=== PATIENT | male | born 1990 | race Caucasian/White ===

== ENCOUNTER 2017-01-08 10:35 | Emergency (ER) | payer SELFPAY ==
[~2017-01-08] VITALS: Ht 188 cm; Wt 88.5 kg
[~2017-01-08 10:35] MED LIST: ASPI325T2 PO; LAMO100T2 PO; LEVO88TA2 PO; LORA-258 PO; RIVA10TA
[2017-01-08] MEDS ORDERED: HYDROMORPHONE INJ 2 MG/ML DISP.SYRIN IV ONE (11:00)
[2017-01-08] MEDS ORDERED: ONDANSETRON HCL/PF 4 MG/2 ML VIAL IVP ONE (11:00)
--- NOTE | 2017-01-08 11:00 | NUR ---
ASSUME PT CARE. RESTING IN BED. HERE FOR MIDSTERNAL CHEST PAIN THAT STARTED 2 HOURS PRIOR TO ARRIVAL. DENIES SOB. PT STATES HX OF BLOOD CLOTS. ON MONITOR W/ STABLE VITALS. SEEN BY LAURIE. WILL CONT TO MONITOR.
[2017-01-08] MEDS ORDERED: ONDANSETRON HCL/PF 4 MG/2 ML VIAL ONE (11:08)
[2017-01-08] MEDS ORDERED: HYDROMORPHONE 1 MG/1 ML DISP.SYRIN ONE ×2 (11:08→12:03)
[2017-01-08 11:10] LABS: BASOPHILS % (AUTO) 0.6 % (0.0-2.0); EOSINOPHILS # (AUTO) 0.1 /CMM (0.0-0.7); EOSINOPHILS % (AUTO) 1.6 % (0.0-6.0); HEMATOCRIT 43 % (39-51); HEMOGLOBIN 14.9 g/dL (13.5-17.5); LYMPHOCYTES # (AUTO) 1.5 /CMM (0.8-4.8); MEAN CORPUSCULAR HEMOGLOBIN 29 PG (26.0-33.0); MEAN CORPUSCULAR HGB CONC 34 g/dl (31.0-36.0); MEAN CORPUSCULAR VOLUME 85 fL (80-96); MONOCYTES # (AUTO) 0.3 /CMM (0.1-1.30); MONOCYTES % (AUTO) 4.7 % (2.0-12.0); NEUTROPHILS % (AUTO) 68.1 % (43.0-81.0); PLATELET COUNT (AUTO) 164 /CMM (150-450); RDW COEFFICIENT OF VARIATION 11.2 (11.5-15.0); RED BLOOD CELL COUNT(AUTO) 5.09 MIL/uL (4.5-6.0); WHITE BLOOD COUNT (AUTO) 5.9 K/uL (4.3-11.0)
[2017-01-08 11:20] LABS: CALCIUM, SERUM 9.1 mg/dL (8.5-10.1); CARBON DIOXIDE 29 mmol/L (21-32); CHLORIDE 102 mmol/L (98-107); CREATININE 1.1 mg/dL (0.6-1.3); GLUCOSE 98 mg/dL (74-106); SODIUM SERUM 139 mmol/L (136-145); UREA NITROGEN, BLOOD 10 mg/dL (7-18)
[2017-01-08 11:24] LABS: INR 1.09 (0.87-1.13); PROTHROMBIN TIME 11.3 SECS (9.5-12.7)
[2017-01-08 11:29] LABS: TROPONIN I < 0.017 ng/mL (0.00-0.056)
[2017-01-08] MEDS ORDERED: HYDROMORPHONE 1 MG/1 ML DISP.SYRIN IV ONE (12:00)
--- NOTE | 2017-01-08 12:20 | NUR ---
PT TO RADIOLOGY FOR CT PULMONARY ANGIO VIA [facility].
[2017-01-08] MEDS ORDERED: IOHEXOL-350 100 ML VIAL IV ONE (12:24)
[2017-01-08] MEDS ORDERED: CT SWABBABLE VALVE TRANS SET 1 EA INFUS.SET MC ONE (12:24)
[2017-01-08] MEDS ORDERED: IV NS 0.9% 250 ML IV ONE (12:24)
--- NOTE | 2017-01-08 13:19 | NUR ---
Patient discharged to home in stable condition. Written and verbal after care instructions given. Patient verbalizes understanding of instruction.IV removed. Catheter intact and site benign. Pressure and 4x4 applied to site. No bleeding noted.
[2017-01-08 13:20] VITALS: BP 132/80
== END 2017-01-08 13:42 | disposition home or self-care (01) ==
LOC: ER 10:40
DX: R07.89 Other chest pain (principal); Z90.49 Acquired absence of other specified parts of digestive tract; F17.200 Nicotine dependence, unspecified, uncomplicated; Z88.0 Allergy status to penicillin; Z88.2 Allergy status to sulfonamides; Z88.8 Allergy status to other drugs, medicaments and biological substances; Z88.6 Allergy status to analgesic agent
CPT/HCPCS: 36415; 71275; 80048; 84484; 85025; 85730; 93005; 96374; 96375; 96376; 99285; A4606; J1170 ×2; J2405; J7050; Q9967; Z7610

== ENCOUNTER 2018-04-20 13:48 | Emergency (ER) | payer OTHER ==
[~2018-04-20] VITALS: Ht 182.9 cm; Wt 122.0 kg
[~2018-04-20 13:48] MED LIST changes: +ASPI-992 PO; -ASPI325T2 PO
--- NOTE | 2018-04-20 14:10 | NUR ---
PT BIBSELF C/O ABD PAIN WITH RECTAL BLEEDING AFTER GOING TO BR LAST NIGHT N, -V/D. PT ON MONITOR IN BED 4. WILL CONTINUE TO MONITOR.
[2018-04-20] MEDS ORDERED: ONDANSETRON HCL/PF 4 MG/2 ML VIAL ONE (14:12)
[2018-04-20] MEDS ORDERED: MORPHINE SULFATE INJ 4 MG/ML DISP.SYRIN ONE (14:13)
--- NOTE | 2018-04-20 14:20 | NUR ---
BLOOD COLLECTED AND SENT TO LAB
[2018-04-20] MEDS ORDERED: MORPHINE SULFATE INJ 2 MG/ML DISP.SYRIN IV ONE ×2 (14:30→16:00)
[2018-04-20] MEDS ORDERED: ONDANSETRON HCL/PF 4 MG/2 ML VIAL IVP ONE (14:30)
[2018-04-20] MEDS ORDERED: IV NS 0.9% 1,000 ML BAG IV ONE (14:30)
[2018-04-20 14:37] LABS: BASOPHILS % (AUTO) 0.6 % (0.0-2.0); EOSINOPHILS % (AUTO) 1.7 % (0.0-6.0); HEMATOCRIT 44 % (39-51); HEMOGLOBIN 15.5 g/dL (13.5-17.5); LYMPHOCYTES # (AUTO) 1.2 /CMM (0.8-4.8); LYMPHOCYTES % (AUTO) 23.6 % (20.0-44.0); MEAN CORPUSCULAR HGB CONC 35 g/dl (31.0-36.0); MEAN CORPUSCULAR VOLUME 86 fL (80-96); MONOCYTES # (AUTO) 0.3 /CMM (0.1-1.30); MONOCYTES % (AUTO) 6.4 % (2.0-12.0); NEUTROPHILS # (AUTO) 3.3 /CMM (1.8-8.9); NEUTROPHILS % (AUTO) 67.7 % (43.0-81.0); PLATELET COUNT (AUTO) 191 /CMM (150-450); RED BLOOD CELL COUNT(AUTO) 5.07 MIL/uL (4.5-6.0); WHITE BLOOD COUNT (AUTO) 4.9 K/uL (4.3-11.0)
[2018-04-20 14:52] LABS: POTASSIUM 3.7 mmol/L (3.5-5.1)
[2018-04-20 15:06] LABS: ALBUMIN 4.4 g/dL (3.4-5.0); BILIRUBIN,DIRECT 0.1 mg/dL (0.0-0.2); BILIRUBIN,TOTAL 0.5 mg/dL (0.2-1.0); TOTAL PROTEIN, SERUM 8.7 g/dL (6.4-8.2)
--- NOTE | 2018-04-20 15:15 | NUR ---
URINE COLLECTED AND SENT TO LAB
[2018-04-20 15:33] LABS: APPEARANCE,URINE Clear (CLEAR); BILIRUBIN,URINE Negative (NEGATIVE); BLOOD, URINE Negative Ery/uL (NEGATIVE); COLOR,URINE Yellow (YELLOW); KETONES,URINE Negative (NEGATIVE); LEUKOCYTE ESTERASE ,URINE Negative (NEGATIVE); NITRITE, URINE Negative (NEGATIVE); PH,URINE 5.5 (5.0-8.0); PROTEIN,URINE Negative (NEGATIVE); UGLUCOSE Negative (NEGATIVE); UROBILINOGEN,URINE 0.2 EU/dL (0.2)
[2018-04-20 15:49] LABS: OCCULT BLOOD STOOL POSITIVE (NEGATIVE)
[2018-04-20] MEDS ORDERED: PANTOPRAZOLE 40 MG VIAL IV ONE (16:00)
[2018-04-20] MEDS ORDERED: PANTOPRAZOLE 40 MG VIAL ONE (16:01)
[2018-04-20] MEDS ORDERED: HYDROMORPHONE INJ 0.5 MG/0.5 ML SYRINGE IV ONE (16:30)
[2018-04-20] MEDS ORDERED: IV NS 0.9% 250 ML IV ONE (16:36)
[2018-04-20] MEDS ORDERED: CT SWABBABLE VALVE TRANS SET 1 EA INFUS.SET MC ONE (16:36)
[2018-04-20] MEDS ORDERED: IOHEXOL-300 100 ML VIAL IV ONE (16:36)
[2018-04-20] MEDS ORDERED: HYDROMORPHONE 1 MG/1 ML DISP.SYRIN ONE (16:36)
[2018-04-20 17:51] VITALS: BP 112/68
== END 2018-04-20 17:52 | disposition home or self-care (01) ==
LOC: ER 13:56
DX: K62.5 Hemorrhage of anus and rectum (principal); R56.9 Unspecified convulsions; I48.91 Unspecified atrial fibrillation; D68.59 Other primary thrombophilia; D68.51 Activated protein C resistance; E03.9 Hypothyroidism, unspecified; F17.200 Nicotine dependence, unspecified, uncomplicated; Z98.890 Other specified postprocedural states; Z98.49 Cataract extraction status, unspecified eye; Z90.89 Acquired absence of other organs; Z88.0 Allergy status to penicillin; Z88.2 Allergy status to sulfonamides; Z88.1 Allergy status to other antibiotic agents; Z88.6 Allergy status to analgesic agent; Z87.442 Personal history of urinary calculi; Z85.850 Personal history of malignant neoplasm of thyroid; Z60.2 Problems related to living alone; Z86.711 Personal history of pulmonary embolism; Z79.82 Long term (current) use of aspirin
CPT/HCPCS: 36415; 76705-TC; 80048-TC; 80076-TC; 81000-TC; 82272-TC; 83690-TC; 85025-TC; 85730-TC; A4606; C9113; J1170; J2270; J2405; J7030; J7050; Q9967; Z7610